=== PATIENT | female | born 1985 | race Caucasian/White ===

== ENCOUNTER 2016-12-26 17:03 | Inpatient (IN) | payer BC, OTHER ==
[~2016-12-26] VITALS: Ht 157.5 cm; Wt 53.5 kg
[2016-12-26] MEDS ORDERED: METO-295 PO (17:35)
[2016-12-26] MEDS ORDERED: DEXT10TA19 PO (17:35)
[2016-12-26] MEDS ORDERED: ACYC200C PO (17:35)
[2016-12-26] MEDS ORDERED: DOCU-170 PO (17:35)
--- NOTE | 2016-12-26 19:40 | NUR ---
Intake Assessment Patient came from ER. Assessment done at intake office. Patient came in a wheelchair for unsteady gait. Patient is alert & oriented x4. Speech is slurred but audible. Pt appears anxious but cooperative during assessment. Vitals noted B/P 132/93, UT 103, RR 16, Temp 97.8, O2Sat 96%. Pt is here for ETOH. No seizure history noted. Pt is allergic to gluten. Pt did not bring any home medications. Explained to pt unit protocols. Pt verbalized understanding.
--- NOTE | 2016-12-26 19:55 | NUR ---
ADMISSION NOTE: Patient is a 31 y.o female admitted at [facility] via wheelchair at approximately 1955pm of 12/26/16 for medically supervised withdrawal from ETOH. Body search done and skin check performed in Room 309, no contraband found. Skin noted to be intact. Pt is cooperative during assessment. Patient is oriented to floor unit and room. Patient follows a gluten free diet at home with no allergies to gluten. Pt wishes to be full Code. Patient is alert & oriented x4. Speech is clear and audible. Patient appears anxious but cooperative during interview. No shortness of breath noted. Respiration even & unlabored. Abdomen soft & non-distended. Bowel sounds active in all four quadrants. Patient complains of nausea, sweating & 5/10 generalized body aches. No headache noted. Patient denies hallucinations. Bilateral hand tremors felt but not seen. CIWA 5 noted. Vitals upon admission: B/P 132/93, MN 103, Temp 97.8, RR 16, O2Sat 96%. Patient noted with past medical history of Anxiety, Depression, ADHD, Optic disc Drusen, Herpes I, Eating disorder, Anorexia Nervosa (16 years old). Pt denies thoughts of suicide in the past. Pt currently denies SI/HI. Pt was able to provide urine sample for drug screen upon admission and is voiding clear yellow urine with no problems. Substance use: 1. ETOH- Pt has been drinking since she was 22 years old. Pt drinks 375ml of Vodka daily for the last 6 years. Last drink was an 2 hour prior to admission 12/26/16 at 1730. Last drink was 1 pint of Vodka. Patient has no treatment history. Patient has never been sober. Patient denies being hospitalized in the last 30 daysPatient reports symptoms when he does not use as tremors, headaches, & nausea. Patient smokes 20 cigarettes daily. Patient agreed to receive pneumonia vaccine. Patient does not have a PCP. Urine drug screen came back positive for Adderall. Alcohol level is 0.49 upon admission. Patient denies using IV drugs. Fall & Seizure precautions are in place. All needs attended & met. Safety precautions are in place. Bed locked in lowest position. Both side rails padded & up. Call light within pt's reach. Pt was seen by Dr. Rosa. Awaiting for admission orders. Will continue to monitor patient.
[2016-12-26] MEDS ORDERED: THIAMINE HCL 200 MG/2 ML VIAL IM ONE (20:00)
[2016-12-26] MEDS ORDERED: CLONIDINE HCL 0.1 MG TABLET PO PRN (20:00)
[2016-12-26] MEDS ORDERED: LORAZEPAM 2 MG/1 ML VIAL IM PRN (20:00)
[2016-12-26] MEDS ORDERED: ACETAMINOPHEN 325 MG TABLET PO PRN (20:00)
[2016-12-26] MEDS ORDERED: MIRALAX 17 GM POWD.PACK PO PRN (20:00)
[2016-12-26] MEDS ORDERED: MAGNESIUM HYDROXIDE 30 ML LIQUID UDC PO PRN (20:00)
[2016-12-26] MEDS ORDERED: LOPERAMIDE HCL 2 MG CAPSULE PO PRN ×2 (20:00)
[2016-12-26] MEDS ORDERED: ONDANSETRON 4 MG/2 ML VIAL IM PRN (20:00)
[2016-12-26] MEDS ORDERED: MAG HYDROX/AL HYDROX/SIMETH 30 ML LIQUID UDC PO PRN (20:00)
[2016-12-26] MEDS ORDERED: LORAZEPAM 1 MG TABLET PO PRN ×2 (20:00)
[2016-12-26] MEDS ORDERED: DICYCLOMINE HCL 20 MG TABLET PO PRN (20:00)
[2016-12-26 20:34] LABS: HEMOGLOBIN 13.3 G/DL (12.0-16.0); MEAN CORPUSCULAR HEMOGLOBIN 32.2 UUG (27.0-31.0); MEAN CORPUSCULAR HGB CONC 33 g/dL (32.0-37.0); MEAN CORPUSCULAR VOLUME 97.2 FL (81.0-99.0); PLATELET COUNT (AUTO) 252 K/UL (150-450); RED BLOOD CELL COUNT(AUTO) 4.11 MIL/UL (4.2-5.4); WHITE BLOOD COUNT (AUTO) 4.3 K/UL (4.0-11.2)
[2016-12-26 20:44] LABS: THYROID STIMULATING HORMONE 0.985 mIU/mL (0.358-3.740)
[2016-12-26 20:50] LABS: BILIRUBIN,TOTAL 0.3 mg/dL (0.2-1.0); CREATININE 0.7 mg/dL (0.6-1.3); MAGNESIUM 1.7 mg/dL (1.8-2.4); POTASSIUM 4.1 mmol/L (3.5-5.1); TOTAL PROTEIN, SERUM 8.2 g/dL (6.4-8.2)
[2016-12-26] MEDS ORDERED: IV NS 1000 ML 1,000 ML IV PRN (21:00)
[2016-12-26] MEDS ORDERED: MAGNESIUM OXIDE 400 MG TABLET PO ONE (21:00)
[2016-12-26 21:04] LABS: BAND % (MANUAL) 3 % (0-10); EOSINOPHILS % (MANUAL) 3 % (0-8); LYMPHOCYTES % (MANUAL) 29 % (20-40); MONOCYTES % (MANUAL) 8 % (2-10); NEUTROPHILS % (MANUAL) 57 % (42-75)
[2016-12-26 21:24] LABS: *URINE HCG, QUAL NEGATIVE (NEGATIVE)
[2016-12-26 21:27] LABS: *BILIRUBIN,URIN NEGATIVE (NEGATIVE); *BLOOD, URINE NEGATIVE (NEGATIVE); *CLARITY,URINE CLEAR (CLEAR); *COLOR,URINE YELLOW (YELLOW); *KETONES,URINE 1+ (NEGATIVE); *PROTEIN,URINE 2+ (NEGATIVE); *UROBILINOGEN,URINE 0.2 E.U./dl (NORMAL); LEUKOCYTE ESTERASE ,URINE NEGATIVE (NEGATIVE); NITRITE, URINE NEGATIVE (NEGATIVE); PH,URINE 6.5 (5.0-8.0); UGLUCOSE NEGATIVE (NEGATIVE)
[2016-12-26 21:42] LABS: *AMPHETAMINE, URINE POSITIVE (NEGATIVE); *BARBITURATE, URINE NEGATIVE (NEGATIVE); *CANNABINOID, URINE NEGATIVE (NEGATIVE); *COCCAINE, URINE NEGATIVE (NEGATIVE); *OPIATE, URINE NEGATIVE (NEGATIVE); *PHENCYCLIDINE SCREEN,URINE NEGATIVE (NEGATIVE)
[2016-12-26 21:51] LABS: SQUAMOUS EPITHELIAL CELL,UR MODERATE /HPF (NONE SEEN); WBC,URINE 0-3 /HPF (0-3)
[2016-12-26 21:52] LABS: MUCUS,URINE FEW /LPF (0-FEW)
[2016-12-26] MEDS ORDERED: HYDROXYZINE PAMOATE 25 MG CAPSULE PO PRN (23:00)
[2016-12-26] MEDS ORDERED: HYDROXYZINE PAMOATE 25 MG CAPSULE ONE (23:07)
[2016-12-26] MEDS: IBUPROFEN 400 MG TABLET PO PRN (23:23)
[2016-12-26] MEDS: diphenhydrAMINE 50 MG CAPSULE PO PRN (23:23)
[2016-12-26] MEDS: ONDANSETRON ODT 4 MG TAB.RAPDIS SL PRN (23:23)
--- NOTE | 2016-12-26 23:23 | NUR ---
PRN Administration Patient complains of headache, anxiety, and nausea. Pt also requested medication to help her sleep. Patient appears anxious and restless. No episode of vomiting noted. PRN Motrin, Vistaril, Zofran & Benadryl administered as ordered. Will reassess in 1 hour. Will continue to monitor patient.
[2016-12-26] MEDS ORDERED: MAGNESIUM OXIDE 400 MG TABLET ONE (23:25)
[2016-12-26] MEDS ORDERED: THIAMINE HCL 200 MG/2 ML VIAL ONE (23:29)
[2016-12-27] VITALS: BP 113/64
--- NOTE | 2016-12-27 00:23 | NUR ---
PRN Reassessment Patient asleep in bed and appears comfortable. No s/s of distress noted. No facial grimacing noted. Safety precautions are in place. bed locked in lowest position. Both side rails up. Call light within pt reach. Will continue to monitor.
--- NOTE | 2016-12-27 04:15 | NUR ---
PRN Administration Patient complains of tremors, sweating, anxiety & mild headache. Patient appears anxious in bed. CIWA 7 noted. Vitals WNL. PRN Ativan 1mg administered as ordered. Will reassess in 1 hour. Will continue to monitor patient.
--- NOTE | 2016-12-27 05:15 | NUR ---
PRN Reassessment Patient asleep in bed and appears comfortable. No facial grimacing noted. Patient shows no shortness of breath. Respiration even & unlabored. Pt on continuous fluids. Will continue to monitor patient.
[2016-12-27] MEDS ORDERED: Zofran (06:22)
[2016-12-27] MEDS ORDERED: AMPH20CA3 PO (06:22)
[2016-12-27] MEDS ORDERED: DOXY100C41 PO (06:22)
[2016-12-27] MEDS ORDERED: PANTOPRAZOLE SODIUM 40 MG VIAL IV SCH (07:09)
--- NOTE | 2016-12-27 07:34 | NUR ---
End of Shift Note: Patient is a 31 y/o female admitted last night at 1955pm for ETOH dependence. Patient reported drinking 375ml of Vodka daily for 6 years. Patient has medical history of Anxiety, Depression, ADHD, Optic disc drusen, Eating disorder, Herpes I, Hx of Gonorrhea, Hx of Anorexia (Age 16). No history of seizures. Patient is on a gluten free diet with allergies to gluten. Full Code status. Fall & Seizure precaution. Patient has IV access 22 gauge on right hand with running 0.9% NS @ 125ml/hr. Site is patent and intact. Patient has no taper yet. PRN medication available for symptoms of withdrawal. Patient was given PRN Benadryl, Vistaril, Motrin, Zofran & Ativan. Last CIWA is 2. Patient still asleep at this time. No shortness of breath noted. Respiration even & unlabored. Patient remained stable and vitals remains WNL. Pt slept for a total of 6 hours. Pt consumed 1600ml of fluids. Voided 1x with no bowel movement. All needs attended & met. Safety precautions are in place. Will endorse pt to day shift nurse.
--- NOTE | 2016-12-27 07:35 | NUR ---
Start of Shift report received from cage shift manager nurse. Patient is a 31 y/o female admitted for ETOH dependence. Pt is full code gluten free diet, reports allergies to gluten, continues fall and seizure precautions. Patient reported drinking 375ml of Vodka daily for 6 years. Patient has medical history of Anxiety, Depression, ADHD, Optic disc drusen, Eating disorder, Herpes I, Hx of Gonorrhea, Hx of Anorexia (Age 16). No history of seizures. Patient has IV access 22 gauge on right hand with running 0.9% NS @ 125ml/hr. Site is patent and intact. Pt is to start an 5 day Ativan taper today. Patient was given PRN Benadryl, Vistaril, Motrin, Zofran & Ativan medication effective per cage shift manager nurse. Last CIWA is 2. No shortness of breath noted. Respiration even & unlabored at 16. Pt slept for a total of 6 hours. Safety precautions are in place. will continue to monitor and provide care.
[2016-12-27 08:26] LABS: BASOPHILS # (AUTO) 0.1 K/uL (0.0-8.0); BASOPHILS % (AUTO) 1.4 % (0.0-2.0); EOSINOPHILS # (AUTO) 0.1 K/uL (0.0-0.7); EOSINOPHILS % (AUTO) 2.5 % (0.0-7.0); HEMATOCRIT 33.9 % (37-47); HEMOGLOBIN 11.4 G/DL (12.0-16.0); LYMPHOCYTES # (AUTO) 1.3 K/UL (0.8-4.8); LYMPHOCYTES % (AUTO) 32.4 % (20.5-51.5); MEAN CORPUSCULAR HEMOGLOBIN 33.4 UUG (27.0-31.0); MEAN CORPUSCULAR HGB CONC 34 g/dL (32.0-37.0); MEAN CORPUSCULAR VOLUME 99.1 FL (81.0-99.0); MONOCYTES # (AUTO) 0.5 K/UL (0.1-1.30); MONOCYTES % (AUTO) 11.3 % (0.0-11.0); NEUTROPHILS % (AUTO) 52.4 % (38.5-71.5); PLATELET COUNT (AUTO) 194 K/UL (150-450); RED BLOOD CELL COUNT(AUTO) 3.42 MIL/UL (4.2-5.4)
[2016-12-27 08:59] LABS: BILIRUBIN,DIRECT 0.1 mg/dL (0.0-0.2); BILIRUBIN,TOTAL 0.4 mg/dL (0.2-1.0); CREATININE 0.7 mg/dL (0.6-1.3); MAGNESIUM 1.7 mg/dL (1.8-2.4); PHOSPHOROUS 4.5 mg/dL (2.5-4.9); POTASSIUM 4.1 mmol/L (3.5-5.1); TOTAL PROTEIN, SERUM 6.6 g/dL (6.4-8.2)
[2016-12-27] MEDS ORDERED: TUBERCULIN,PURIF.PROT.DERIV. 5 TU/0.1 ML TEST ID ONE (09:00)
[2016-12-27] MEDS ORDERED: MAGNESIUM OXIDE 400 MG TABLET PO ONE (09:45)
[2016-12-27] MEDS: MULTIVITAMINS,THERAPEUTIC TABLET PO SCH (09:50)
[2016-12-27] MEDS: FOLIC ACID 1 MG TABLET PO SCH (09:50)
[2016-12-27] MEDS: THIAMINE HCL 100 MG TABLET PO SCH (09:50)
[2016-12-27] MEDS: LORAZEPAM 1 MG TABLET PO SCH ×4 (09:50→20:33)
[2016-12-27 12:00] VITALS: BP 123/81
[2016-12-27] MEDS: ONDANSETRON ODT 4 MG TAB.RAPDIS SL PRN ×2 (14:00→20:33)
[2016-12-27] MEDS: IBUPROFEN 400 MG TABLET PO PRN ×2 (14:00→20:32)
--- NOTE | 2016-12-27 14:00 | NUR ---
PRN MEDICATION Pt c/o Nausea and a headache rating it 5/10 requested something for relief, non-pharmacological techniques interventions provided x3 and were not effective. PRN Zofran 4mg and Motrin 400mg administered PO, educated pt about s/e of medication and when to contact nurse. all needs met, all safety measures in place, will continue to monitor.
--- NOTE | 2016-12-27 15:00 | NUR ---
PRN REASSESSMENT Upon reassessment medication noted to be effective pt reported a decrease in pain to 0/10 and that she was no longer nauseated . Instructed pt to contact nurse if pain reoccurred. All needs met, all safety measures in place will continue to monitor.
[2016-12-27 16:00] VITALS: BP 115/77
--- NOTE | 2016-12-27 19:15 | NUR ---
Start of Shift Note: Patient is a 31 y/o female admitted last night 12/26/16 for ETOH dependence. Patient reported drinking 375ml of Vodka daily for 6 years. Patient has medical history of Anxiety, Depression, ADHD, Optic disc drusen, Eating disorder, Herpes I, Hx of Gonorrhea, Hx of Anorexia (Age 16). No history of seizures. Patient is on a gluten free diet with allergies to gluten. Full Code status. Fall & Seizure precaution. IV DC'd during day shift. Patient is on a 5-day Ativan taper and tolerating well. Last CIWA is 5. Pt was given PRN Zofran and Motrin during day shift. Patient is alert & oriented x4. Patient is ambulatory with a steady gait. No shortness of breath noted. Respiration even & unlabored. Abdomen soft & non-distended. Nausea noted with no episode of vomiting noted. Patient complains of 6/10 body aches, & sweating. Bilateral hand tremors noted. Patient denies hallucinations. Safety precautions are in place. Bed locked in lowest position. Both side rails up. Call light within pt's reach. Will continue to monitor patient.
--- NOTE | 2016-12-27 19:17 | NUR ---
End Of Shift Report given to plane tender nurse. Patient is a 31 y/o female admitted for ETOH dependence. Pt is full code gluten free diet, reports allergies to gluten, continues fall and seizure precautions. Pt continues her 5 day Ativan taper tolerating well. Patient has medical history of Anxiety, Depression, ADHD, Optic disc drusen, Eating disorder, Herpes I, Hx of Gonorrhea, Hx of Anorexia (Age 16). No history of seizures. Pts IV was discontinued by MD. Patient was given PRN Motrin 400 and Zofran 4mg medication effective. Last CIWA was 5 at 1600. Detox medication effective at reducing withdrawal symptoms. Patient encouraged to attend group therapies/sessions to learn new coping skills to recent relapse, patient denies SI/HI. Pt had an intake of 1855ml and voids x2 no BM. Safety measures in place, call light within reach, side rails up x2, bed locked and in low position. Endorsed to day shift nurse.
[2016-12-27 20:00] VITALS: BP 132/84
--- NOTE | 2016-12-27 20:33 | NUR ---
PRN Administration Patient complains of 6/10 body aches and nausea. No episode of vomiting noted. PRN Motrin & Zofran administered as ordered. Will reassess in 1 hour. Will continue to monitor patient.
--- NOTE | 2016-12-27 21:33 | NUR ---
PRN Reassessment Patient verbalized relief from body aches and improved nausea. Pt lying in bed and appears comfortable. no facial grimacing noted. Safety precautions are in place. Will continue to monitor patient.
[2016-12-27] MEDS: diphenhydrAMINE 50 MG CAPSULE PO PRN (22:29)
--- NOTE | 2016-12-27 22:29 | NUR ---
PRN Benadryl Patient complains of unable to go to sleep. PRN Benadryl administered as ordered. Will continue to monitor patient.
--- NOTE | 2016-12-27 23:29 | NUR ---
PRN Reassessment Patient already asleep in bed with no s/s of distress noted. No shortness of breath noted. Safety precautions are in place. Will continue to monitor patient.
[2016-12-28] VITALS (7 sets, daily range): BP systolic 107–128; BP diastolic 72–86
[2016-12-28 05:09] LABS: HEPATITIS B SURFACE AG Negative (Negative)
--- NOTE | 2016-12-28 07:24 | NUR ---
End of Shift Note: Patient is a 31 y/o female admitted last night at 1955pm for ETOH dependence. Patient reported drinking 375ml of Vodka daily for 6 years. Patient has medical history of Anxiety, Depression, ADHD, Optic disc drusen, Eating disorder, Herpes I, Hx of Gonorrhea, Hx of Anorexia (Age 16). No history of seizures. Patient is on a gluten free diet with allergies to gluten. Full Code status. Fall & Seizure precaution. Patient is on a 5-day Ativan taper and tolerating well. Pt was given PRN Motrin, Zofran & Benadryl. Last CIWA is 5. Patient had an uneventful night. Patient still asleep at this time. No shortness of breath noted. Respiration even & unlabored. Patient remained stable and vitals remains WNL. Pt compliant with medications. Pt slept for a total of 7 hours. Pt consumed 1975 ml of fluids. Voided 2x with no bowel movement. All needs attended & met. Safety precautions are in place. Will endorse pt to day shift nurse.
--- NOTE | 2016-12-28 08:20 | NUR ---
Start of Shift Notes: Received patient in her room. Alert and verbally responsive. Able to make her needs known. Respirations even and unlabored. No SOB noted. Skin warm and dry to touch. Abdomen soft and non-distended with (+) BS in all 4 quadrants. No complains of N/V/D or constipation noted. Voids independently. Ambulatory ad delfino with steady gait. Patient is a 31 year old female admitted for ETOH dependence who was placed on a 5-day Ativan taper as ordered. Taper initiated on 12/27/2016, no delayed reactions noted. Has past medical hx of anxiety, depression, ADHD, optic disc drusen, eating disorder, herpes I, hx of gonorrhea, and anorexia. FULL CODE. Gluten free diet. Allergic to gluten. Educated patient on her current plan of care for the day and her medication regimen. Encouraged oral fluid intake and encouraged group participation to learn new skills to prevent relapse.
[2016-12-28 08:55] LABS: BILIRUBIN,DIRECT 0.1 mg/dL (0.0-0.2); BILIRUBIN,TOTAL 0.7 mg/dL (0.2-1.0); CREATININE 0.7 mg/dL (0.6-1.3); MAGNESIUM 1.8 mg/dL (1.8-2.4); PHOSPHOROUS 4.2 mg/dL (2.5-4.9); POTASSIUM 4.3 mmol/L (3.5-5.1); TOTAL PROTEIN, SERUM 6.7 g/dL (6.4-8.2)
[2016-12-28] MEDS: THIAMINE HCL 100 MG TABLET PO SCH (09:13)
[2016-12-28] MEDS: LORAZEPAM 1 MG TABLET PO SCH ×3 (09:13→20:35)
[2016-12-28] MEDS: FOLIC ACID 1 MG TABLET PO SCH (09:13)
[2016-12-28] MEDS: MULTIVITAMINS,THERAPEUTIC TABLET PO SCH (09:13)
[2016-12-28] MEDS: IBUPROFEN 400 MG TABLET PO PRN ×2 (11:21→20:35)
--- NOTE | 2016-12-28 11:21 | NUR ---
Motrin 400 mg PO given: Patient noted with complain of 5/10 headache. Non-pharmacological intervention ineffective. Medicated patient with Motrin 400 mg PO as ordered. Will monitor for effectiveness.
--- NOTE | 2016-12-28 11:25 | NUR ---
MD Communication: Patient verbalizes "feeling dehydrated." States that she can tolerate PO fluids, however IV fluids would be better for her. Oral fluids were encouraged and able to tolerate fairly. Notified Dr. Rosa and will enter in orders for IV fluids.
[2016-12-28] MEDS ORDERED: LORAZEPAM 1 MG TABLET PO ONE (12:00)
--- NOTE | 2016-12-28 12:00 | NUR ---
IV line insertion: 24 gauge was inserted to patient's left AC with good blood return. No resistance noted. No s/s of infiltration noted. Attempted x 2. Tourniquet released and flushed adequately per unit protocol. Patient tolerated the procedure well.
[2016-12-28] MEDS: IV D5 1/2 NS 1000 ML 1,000 ML IV PRN (12:12)
--- NOTE | 2016-12-28 12:12 | NUR ---
IV fluids initiated: Flushed patient's IV line per protocol. Started patient on D5W 1/2 NS at 125cc/hr.
--- NOTE | 2016-12-28 12:21 | NUR ---
Re-assessment: Per patient, PRN Motrin 400 mg PO was effective in reducing headache. PL 09/14.
[2016-12-28] MEDS ORDERED: HYDROXYZINE PAMOATE 25 MG CAPSULE PO PRN (12:45)
--- NOTE | 2016-12-28 18:47 | NUR ---
End of Shift Notes: Patient is a 31 year old female admitted for ETOH dependence who was placed on a 5-day Ativan taper as ordered. Patient is on her 2nd day of her taper. Tolerating well. Prior to admission, patient was using 375cc of Vodka daily x 6 years. VS monitored closely q 4 hours. No significant abnormalities noted. WIthdrawal symptoms were closely monitored. Patient presented with tremors, sweating, anxiety and mild nausea. Initial CIWA 8, last CIWA 2. Medicated patient with Motrin at 1121 for headache with help after 1 hour and extra Ativan 1 mg PO at 1211 for CIWA 6. Patient was started on IV D5/12 NS at 125cc hour continously. IV line to left AC patent and intact. Infusing well. No s/s of infiltration noted. Patient was unable to participate in group and social activities. Appetite fair. All needs met and attended. Will continue to monitor closely.
--- NOTE | 2016-12-28 19:15 | NUR ---
Start of Shift Note: Patient is a 31 y/o female admitted last night 12/26/16 for ETOH dependence. Patient reported drinking 375ml of Vodka daily for 6 years. Patient has medical history of Anxiety, Depression, ADHD, Optic disc drusen, Eating disorder, Herpes I, Hx of Gonorrhea, Hx of Anorexia (Age 16). No history of seizures. Patient is on a gluten free diet with allergies to gluten. Full Code status. Fall & Seizure precaution. Pt has IV access 24G @ Left AC with running D5 1/2 NS @ 125 cc/hr for hydration. Patient is on a 5-day Ativan taper and tolerating well. Last CIWA is 2. Pt was given PRN Motrin and a one time dose of Ativan x1. Patient is alert & oriented x4. Patient is ambulatory with a steady gait. No shortness of breath noted. Respiration even & unlabored. Abdomen soft & non-distended. No nausea noted. Patient complains of 4/10 headache, sweating & anxiety. Bilateral hand tremors noted. Patient denies hallucinations. Safety precautions are in place. Bed locked in lowest position. Both side rails up. Call light within pt's reach. Will continue to monitor patient.
--- NOTE | 2016-12-28 20:45 | NUR ---
PRN Motrin Patient complains of 4/10 headache. Pt noted with facial grimacing. PRN Motrin administered as ordered. Will reassess in 1 hour for effectiveness of medication.
--- NOTE | 2016-12-28 21:45 | NUR ---
PRN Reassessment Patient verbalized relief from headache. No facial grimacing noted at this time. Pt shows no s/s of distress. Will continue to monitor patient.
[2016-12-28] MEDS: diphenhydrAMINE 50 MG CAPSULE PO PRN (22:32)
--- NOTE | 2016-12-28 22:32 | NUR ---
PRN Benadryl Patient c/o of unable to fall asleep. PRN Benadryl administered as ordered. Will continue to monitor.
[2016-12-28 23:15] LABS: *CELIAC IMMUNOGLOBULIN A 201 mg/dL (87-352)
--- NOTE | 2016-12-28 23:28 | NUR ---
PRN Vistaril Patient complains of anxiety. Patient lying in bed and appears restless. PRN Vistaril administered as ordered. Will reassess in 1 hour for effectiveness of medication. Will continue to monitor patient.
[2016-12-29] MEDS: IV D5 1/2 NS 1000 ML 1,000 ML IV PRN ×2 (00:20→08:41)
--- NOTE | 2016-12-29 00:28 | NUR ---
PRN Reassessment Patient verbalized decreased in anxiety. Pt lying in bed and appears comfortable. No s/s of distress noted. Safety precautions are in place. Will continue to monitor patient.
--- NOTE | 2016-12-29 00:51 | NUR ---
IV Access Pt complains of discomfort on lV access on left AC. Pt requested to change site. IV 22 G inserted on her left forearm with good blood return. Insertion successful after one attempt. Flushes easily with no complaints of discomfort from patient. Tegaderm applied. Pt continues to receive D5 1/2 NS @ 125cc/hr for hydration. Pt in stable condition.
--- NOTE | 2016-12-29 01:30 | NUR ---
PRN Reassessment Patient asleep in bed and appears comfortable. No s/s of distress noted. Safety precautions are in place. Will continue to monitor.
[2016-12-29 04:00] VITALS: BP 135/88
--- NOTE | 2016-12-29 06:59 | NUR ---
End of Shift Note: Patient is a 31 y/o female admitted last night 12/26/16 for ETOH dependence. Patient reported drinking 375ml of Vodka daily for 6 years. Patient has medical history of Anxiety, Depression, ADHD, Optic disc drusen, Eating disorder, Herpes I, Hx of Gonorrhea, Hx of Anorexia (Age 16). No history of seizures. Patient is on a gluten free diet with allergies to gluten. Full Code status. Fall & Seizure precaution. IV access on left AC was DC'd per patient's request and reinserted 22G @ Left forearm with no complaints of discomfort. Pt on D5 1/2 NS @ 125 cc/hr for hydration. Patient is on a 5-day Ativan taper and tolerating well. Pt was given PRN Motrin, Benadryl & Vistaril during my shift. Last CIWA is 4. Patient had an uneventful night. Patient still asleep at this time. No shortness of breath noted. Respiration even & unlabored. Patient remained stable and vitals remains WNL. Pt compliant with medications. Pt slept for a total of 4 hours. Pt consumed 1035 ml of fluids. Voided 3x with no bowel movement. All needs attended & met. Safety precautions are in place. Will endorse pt to day shift nurse.
--- NOTE | 2016-12-29 07:27 | NUR ---
START OF SHIFT NOTE: Received report from band leader nurse. Patient is a 31 y/o female admitted 12/26/16 for ETOH dependence. Pt is on a 5 day Ativan taper. Tolerating well. Pt has IV of D5 1/2 NS @ 125cc/hr LFA. Infusing well without signs of infiltration. Pt is alert and oriented X4. Color good, skin warm and dry. Respirations even and unlabored. Resting in bed at this time. Safety precautions observed. Call light within reach. Will continue to monitor.
[2016-12-29 08:06] LABS: VIT D, 25-HYDROXY 19.1 ng/mL (30.0-100.0)
[2016-12-29] MEDS: MULTIVITAMINS,THERAPEUTIC TABLET PO SCH (08:39)
[2016-12-29] MEDS: THIAMINE HCL 100 MG TABLET PO SCH (08:39)
[2016-12-29] MEDS: FOLIC ACID 1 MG TABLET PO SCH (08:39)
[2016-12-29] MEDS: LORAZEPAM 1 MG TABLET PO SCH ×2 (08:39→12:41)
[2016-12-29 08:48] VITALS: BP 124/77
[2016-12-29] MEDS ORDERED: PNEUMOCOCCAL 23-VAL P-SAC VAC 0.5 ML VIAL IM ONE (09:00)
--- NOTE | 2016-12-29 09:43 | NUR ---
VSS CIWA 4 IV infusing well.
[2016-12-29 12:26] VITALS: BP 130/85
--- NOTE | 2016-12-29 12:54 | NUR ---
VSS CIWA 6 c/o anxiety and fine tremors. Pt states she would like to leave tomorrow. Dr. Rosa notified.
--- NOTE | 2016-12-29 16:28 | NUR ---
Pt stated she wanted to leave AMA. Pt educated about the risks and consequences of leaving AMA. Pt verbalized understanding but still requested to leave. Multiple staff members spoke with pt without success. VSS. Pt denies SI/HI. Dr. Rosa notified. IV removed. Pt was given a list of community resources. All valuables and belongings returned to pt. Pt signed AMA form. Pt escorted off the premises in stable condition.
[2016-12-30] MEDS ORDERED: LORAZEPAM 1 MG TABLET PO SCH (09:00)
[2016-12-30] MEDS ORDERED: CHOLECALCIFEROL 1,000 UNIT TABLET PO SCH (09:00)
[2016-12-31] MEDS ORDERED: LORAZEPAM 1 MG TABLET PO SCH (09:00)
[2016-12-31 15:23] LABS: CALCIUM, IONIZED 4.9 mg/dL (4.5-5.6)
[2017-01-01 11:14] LABS: *CELIAC DEAMIDATED GLIADIN IGA 12 units (0-19); *CELIAC DEAMIDATED GLIADIN IGG 2 units (0-19); *CELIAC T-TRANSGLUTAMINASE IGA <2 U/mL (0-3); *CELIAC T-TRANSGLUTAMINASE IGG <2 U/mL (0-5)
== END 2016-12-29 16:35 | disposition left against medical advice (07) | DRG 894 ==
LOC: EDBD → SRC 19:09
PROVIDERS: ADMIT Internal Medicine; ATTEND Internal Medicine
PROC: HZ2ZZZZ Detoxification Services for Substance Abuse Treatment (ICD-10-PCS; principal; 2016-12-26)
PROC: HZ31ZZZ Individual Counseling for Substance Abuse Treatment, Behavioral (ICD-10-PCS; 2016-12-27)
DX: F10.230 Alcohol dependence with withdrawal, uncomplicated (principal); K90.41 Non-celiac gluten sensitivity; E87.2 Acidosis; F90.9 Attention-deficit hyperactivity disorder, unspecified type; F10.220 Alcohol dependence with intoxication, uncomplicated; K70.10 Alcoholic hepatitis without ascites; Y90.9 Presence of alcohol in blood, level not specified; F17.210 Nicotine dependence, cigarettes, uncomplicated; F41.9 Anxiety disorder, unspecified; A60.00 Herpesviral infection of urogenital system, unspecified; K90.0 Celiac disease; D53.9 Nutritional anemia, unspecified; E83.42 Hypomagnesemia; E86.0 Dehydration; E55.9 Vitamin D deficiency, unspecified; D75.89 Other specified diseases of blood and blood-forming organs; Z81.1 Family history of alcohol abuse and dependence; Z83.2 Family history of diseases of the blood and blood-forming organs and certain disorders involving the immune mechanism
CPT/HCPCS: 36415; 80307; 80324; 82306; 82330; 82746; 83550; 83605; 83690; 83735; 84100; 84443; 84703; 85025; 86580; 86592; 86705; 86803; 87340; 87806; A4663; C9113; G6040-TC; J3411; J3490; J7030; Q0162; Q0163

== ENCOUNTER 2016-12-26 17:19 | Emergency (ER) | payer BC, OTHER ==
[~2016-12-26] VITALS: Ht 154.9 cm; Wt 54.4 kg
[2016-12-26] MEDS ORDERED: REGLAN10 MG PO (17:35)
[2016-12-26] MEDS ORDERED: DOCUSATE SODIU100 MG PO (17:35)
[2016-12-26] MEDS ORDERED: AMPHETAMINE SAL10 MG PO (17:35)
[2016-12-26] MEDS ORDERED: ACYCLOVIR200 MG PO (17:35)
--- NOTE | 2016-12-26 17:45 | NUR ---
DR ADEN AT THE BEDSIDE FOR EVAL AND EXAM.
[2016-12-26] MEDS ORDERED: ONDANSETRON ODT 4 MG TAB.RAPDIS SL ONE (18:00)
[2016-12-26] MEDS ORDERED: ONDANSETRON ODT 4 MG TAB.RAPDIS ONE (18:29)
--- NOTE | 2016-12-26 18:52 | NUR ---
PT IS MEDICALLY CLEARED BY DR CALDERON TO BE ADMITTED TO [facility].
--- NOTE | 2016-12-26 18:58 | NUR ---
[facility] INTAKE AT THE BEDSIDE.
[2016-12-26 19:01] VITALS: BP 127/88; PULSE 102; RESP 16; O2SAT 95
[2016-12-27] MEDS ORDERED: DOXYCYCLINE MO100 MG PO (06:22)
[2016-12-27] MEDS ORDERED: ADDERALL XR 2020 MG PO (06:22)
[2016-12-27] MEDS ORDERED: Zofran (06:22)
== END 2016-12-26 19:02 | disposition home or self-care (01) ==
LOC: ER 17:19
DX: R47.81 Slurred speech (principal); F10.20 Alcohol dependence, uncomplicated; F17.200 Nicotine dependence, unspecified, uncomplicated; F19.10 Other psychoactive substance abuse, uncomplicated; Z88.8 Allergy status to other drugs, medicaments and biological substances
CPT/HCPCS: 36415; 80048; 80076; 84703; 85025; 93005; 99285; A4663; G0480; G0481; G0482; Q0162